=== PATIENT | female | born 1965 | race Caucasian/White ===

== ENCOUNTER 2016-10-06 17:52 | Emergency (ER) | payer BC ==
[~2016-10-06] VITALS: Ht 154.9 cm; Wt 92.7 kg
[~2016-10-06 17:52] MED LIST: INDOCIN25 MG PO; LOSARTAN POTAS100 MG PO; MOTRIN800 MG PO; NABUMETONE750 MG PO; NOHOMEMEDS; NORCO 5/3251 TABLET PO; PROTONIX40 MG PO
[2016-10-06] MEDS ORDERED: FLEXERIL10 MG PO (20:17)
[2016-10-06] MEDS ORDERED: MEDROL DOSEPAK4 MG PO (20:17)
[2016-10-06] MEDS ORDERED: PERCOCET 5/31 TABLET PO (20:17)
[2016-10-06 20:29] VITALS: BP 151/85
== END 2016-10-06 20:30 | disposition home or self-care (01) ==
LOC: EME 17:52
DX: M54.16 Radiculopathy, lumbar region (principal); I10 Essential (primary) hypertension; K21.9 Gastro-esophageal reflux disease without esophagitis
CPT/HCPCS: 72131; 99281; 99284; J7512